=== PATIENT | male | born 1975 | race Caucasian/White ===

== ENCOUNTER 2023-05-14 18:50 | Emergency (ER) | payer MEDICAID ==
[2023-05-14] MEDS ORDERED: Lidocaine 1% 5 ML VIAL INJECT ONE (19:50)
[2023-05-14] MEDS ORDERED: Bacitracin Oint 1 GM U/D Packet TOP ONE (19:50)
== END 2023-05-14 20:45 | disposition home or self-care (01) ==
LOC: JP.ED 18:50
DX: T16.1XXA Foreign body in right ear, initial encounter (principal); Z86.16 Personal history of COVID-19
CPT/HCPCS: 99282